=== PATIENT | male | born 1970 | race Caucasian/White ===

== ENCOUNTER 2020-03-08 08:55 | Emergency (ER) | payer BC, SELFPAY ==
[2020-03-08] MEDS ORDERED: Amlodipine 5 MG TAB ONE (09:34)
[2020-03-08] MEDS ORDERED: Aspirin Chewable 81 MG TAB ONE (09:34)
[2020-03-08] MEDS ORDERED: Ondansetron ODT 4 MG TAB ONE (09:34)
--- NOTE | 2020-03-08 09:43 | RAD ---
Portable frontal chest radiograph: 03/08/2020 COMPARISON: 01/19/2016 HISTORY: Pain FINDINGS: Lungs are clear. Heart and mediastinal contours appear within normal limits. IMPRESSION: No acute findings.
[2020-03-08 10:14] LABS: Band 7 % (5-11); Eosinophils 2 % (0-10); Hemoglobin 14.9 g/dL (14.0-18.0); Lymphocytes 35 % (21-51); MDiff Complete? YES; Mean Corpuscular HGB CONC 32.5 g/dL (32.0-36.0); Mean Corpuscular Hemoglobin 29.6 pg (27.0-31.0); Monocytes 8 % (0-10); Neutrophil 48 % (42-75); Platelet Count 220 thou/uL (130-400); Platelet Morphology Comment Appears Adequate; RBC Distribution Width 11.9 % (11.5-14.5); Red Blood Cell (RBC) Count 5.05 mill/uL (4.70-6.10); White Blood Cell (WBC) Count 7.3 thou/uL (4.8-10.8)
[2020-03-08 10:15] LABS: ALT (SGPT) 44 U/L (8-55); AST (SGOT) 21 U/L (5-34); Albumin 4.5 g/dL (3.5-5.0); Alkaline Phosphatase 69 U/L (40-110); Anion Gap 17 mmol/L (10-20); BUN (Urea Nitrogen) 23 mg/dL (8.9-20.6); Bilirubin, Total 0.4 mg/dL (0.2-1.2); CK (CPK) 37 U/L (30-200); Calc. Creatinine Clearance 0 mL/min (70-130); Calcium 9.4 mg/dL (7.8-10.44); Carbon Dioxide 24 mmol/L (22-29); Chloride 103 mmol/L (98-107); Estimated GFR-MDRD Greater than 90; Globulin 3.2 g/dL (2.4-3.5); Glucose 145 mg/dL (70-105); Potassium 3.9 mmol/L (3.5-5.1); Protein, Total 7.7 g/dL (6.0-8.3); Sodium 140 mmol/L (136-145)
[2020-03-08 10:16] LABS: CKMB 1.3 ng/mL (0-6.6)
[2020-03-08] MEDS ORDERED: Ketorolac Tromethamine 30 MG/ML VIAL ONE (10:30)
== END 2020-03-08 11:26 | disposition home or self-care (01) ==
LOC: MADERS 08:55
DX: I10 Essential (primary) hypertension (principal); R51.9 Headache, unspecified; R11.0 Nausea; M19.90 Unspecified osteoarthritis, unspecified site; F32.9 Major depressive disorder, single episode, unspecified
CPT/HCPCS: 71045; 80053; 82550; 82553; 84484; 85025; 93005; 96374; J1885; Q0162